=== PATIENT | female | born 1985 | race Caucasian/White ===

== ENCOUNTER → 2017-09-26 11:06 | Outpatient (CLI) | payer BC | END | disposition home or self-care (01) | LOC: D.LDO 11:06 | DX: O40.3XX0 Polyhydramnios, third trimester, not applicable or unspecified (principal); Z3A.32 32 weeks gestation of pregnancy ==

== ENCOUNTER → 2017-10-06 08:23 | Outpatient (CLI) | payer BC | END | disposition home or self-care (01) | LOC: D.LDO 08:23 | DX: O40.3XX0 Polyhydramnios, third trimester, not applicable or unspecified (principal); Z3A.33 33 weeks gestation of pregnancy ==

== ENCOUNTER → 2017-10-13 09:03 | Outpatient (CLI) | payer BC | END | disposition home or self-care (01) | LOC: D.LDO 09:03 | DX: O40.3XX0 Polyhydramnios, third trimester, not applicable or unspecified (principal); Z3A.34 34 weeks gestation of pregnancy ==

== ENCOUNTER → 2017-10-20 09:09 | Outpatient (CLI) | payer BC ==
[~2017-10-20 09:09] MED LIST: IBUPROFEN800 MG PO; PERCOCET 5-3251 TAB PO; PRENATAL COMPLE1 TAB PO
[2017-11-06 22:17] VITALS: BMI 48.1
== END | disposition home or self-care (01) ==
LOC: D.LDO 09:09
DX: O40.3XX0 Polyhydramnios, third trimester, not applicable or unspecified (principal); Z3A.35 35 weeks gestation of pregnancy

== ENCOUNTER → 2017-10-27 06:38 | Outpatient (CLI) | payer BC ==
[2017-11-06 22:17] VITALS: BMI 48.1
== END | disposition home or self-care (01) ==
LOC: D.LDO 06:38
DX: O40.3XX0 Polyhydramnios, third trimester, not applicable or unspecified (principal); Z3A.36 36 weeks gestation of pregnancy

== ENCOUNTER → 2017-10-31 10:43 | Outpatient (CLI) | payer BC ==
[2017-11-06 22:17] VITALS: BMI 48.1
== END | disposition home or self-care (01) ==
LOC: D.LDO 10:43
DX: O40.3XX0 Polyhydramnios, third trimester, not applicable or unspecified (principal); Z3A.37 37 weeks gestation of pregnancy

== ENCOUNTER → 2017-11-04 08:36 | Outpatient (CLI) | payer BC ==
[2017-11-06 22:17] VITALS: BMI 48.1
== END | disposition home or self-care (01) ==
LOC: D.LDO 08:36
DX: O40.3XX0 Polyhydramnios, third trimester, not applicable or unspecified (principal); Z3A.37 37 weeks gestation of pregnancy

== ENCOUNTER 2017-11-06 14:29 | Inpatient (IN) | payer BC ==
[~2017-11-06] VITALS: Ht 162.6 cm; Wt 127.0 kg
--- NOTE | ~2017-11-06 | OP ---
PATIENT NAME: RODRIGUEZ GATICA MEDICAL RECORD: [id number] LOCATION:[id number] ADMISSION DATE:11/06/17 SURGEON: LEONID ANN MD DATE OF OPERATION: 11/07/2017 PREDELIVERY DIAGNOSES: 1. at 38 weeks' gestation. 2. Polyhydramnios. 3. Arrest of descent. 4. Nonreassuring surveillance. POSTOPERATIVE DIAGNOSES: 1. at 38 weeks' gestation. 2. Polyhydramnios. 3. Arrest of descent. 4. Nonreassuring surveillance. PROCEDURE: Primary low transverse section. SURGEON: Leonid Ann MD ANESTHESIOLOGIST: Dr. Olea ANESTHETIC: Continuous lumbar epidural. FINDINGS: Viable male , vertex presentation, Apgars are 8 and 9, weight 8 pounds 8 ounces. A large amount of fluid at the time of entry into the amniotic cavity. SPECIMEN REMOVED: Placenta. SPECIMEN DISPOSITION: Discarded. EBL: 800-900 cc. FLUIDS: 800 cc of lactated Ringer's. URINE OUTPUT: 50 of clear urine. COMPLICATION: Expanding hematoma and left uterine artery laceration. DRAINS: Pimentel to gravity. INDICATIONS: The patient is a 32-year-old G1, para 0 with polyhydramnios. The patient has been induced with using Cytotec and Pitocin, progressed into active labor and began expulsive efforts earlier this evening. The patient had development of large caput, repetitive deep variable decelerations. Upon cessation of expulsive efforts and discontinuation of the Pitocin, the baseline, which became elevated after expulsive efforts stopped came down to a normal range. The patient was taken to the operating room for a section for failure to progress and nonreassuring surveillance. DESCRIPTION OF PROCEDURE: After informed consent was assured, the patient was taken to the operating room where anesthetic was assessed and found to be adequate. OPERATIVE REPORT [id number] RODRIGUEZ GATICA A low transverse incision was made on the abdomen, carried down to the underlying layer of the fascia. The fascia was opened in the midline and extended laterally. Rectus bellies were dissected free superiorly and inferiorly and then . The peritoneum was entered and a low transverse hysterotomy was performed after development of a bladder flap and insertion of a bladder blade. Infant was delivered onto the abdomen. The cord was doubly clamped and cut and infant was passed to the awaiting attendant. Cord blood sample was obtained. Placenta was delivered and the uterus exteriorized, cleared of all clot and debris. Uterine atony was encountered and Methergine as well as 1 ampule of Hemabate was given. The Hemabate was given directly into the uterus. The hysterotomy is closed. After the initial running locked stitch inspection reveals expanding hematoma on the left side and bleeding from the left uterine vascular bundle. An O'[place]ster stitch was applied here. Two [id number] stitches were also applied to obtain hemostasis. The cul-de-sac was irrigated and uterus returned to the abdomen. The uterus is inspected and again bleeding was noted from the left margin of the incision. The uterus again was exteriorized and a stitch was placed above the uterine hysterotomy at this time obtaining hemostasis. The uterus again was returned to the abdomen and the pelvis was irrigated with water. The operative field was visualized under the water irrigant for several moments without evidence of bleeding vessels. The irrigant was now removed and visual inspection again revealed hemostasis. The peritoneum was reapproximated and the fascia closed with looped PDS in a running fashion. The subcutaneous tissue was inspected and bleeding vessels cauterized. The skin was reapproximated with dimitrios and sterile dressing was applied. The sponge, lap and needle counts were correct times 2 and the patient went to the recovery area in stable condition. TRANSINT:[id number] Voice Confirmation ID: [id number] DOCUMENT ID: [id number] LEONID ANN MD at 0903 CC: [id number] DICTATION DATE: 11/07/172004 [employer] COUNSELOR: 11/07/172054 ADM IN [facility] [address] [id number]
[2017-11-06 21:34] LABS: HEMATOCRIT 33.4 % (36.0-48.0); HEMOGLOBIN 11.1 g/dL (12-16); MCH 26.7 pg (26.0-34.0); MCHC 33.2 g/dL (31.0-37.0); MCV 80.5 fL (80.0-100.0); MEAN PLATELET VOLUME 11.2 fL (7.4-10.4); RBC 4.15 10x6/uL (4.00-5.40); RDW 13.4 % (11.5-14.5); WBC 9.2 10x3/uL (4.8-10.8)
[2017-11-06 22:10] LABS: UDS - AMPHET NEGATIVE QUAL (NEGATIVE); UDS - BARB NEGATIVE QUAL (NEGATIVE); UDS - BENZO NEGATIVE QUAL (NEGATIVE); UDS - COCAINE NEGATIVE QUAL (NEGATIVE); UDS - OPIATE NEGATIVE QUAL (NEGATIVE); UDS - PCP NEGATIVE QUAL (NEGATIVE); UDS - THC NEGATIVE QUAL (NEGATIVE)
[2017-11-06 22:17] VITALS: BP 132/81; Ht 162.6 cm; Wt 127.0 kg
[2017-11-06] MEDS ORDERED: PRENATAL COMPLE1 TAB PO (23:25)
[2017-11-07] VITALS (7 sets, daily range): BP systolic 108–138; BP diastolic 57–80
[2017-11-08] VITALS (7 sets, daily range): BP systolic 113–146; BP diastolic 54–76
[2017-11-08 04:57] LABS: HEMATOCRIT 31.1 % (36.0-48.0); HEMOGLOBIN 10.3 g/dL (12-16); MCHC 33.1 g/dL (31.0-37.0); MCV 81.6 fL (80.0-100.0); MEAN PLATELET VOLUME 11.5 fL (7.4-10.4); RBC 3.81 10x6/uL (4.00-5.40); RDW 13.9 % (11.5-14.5)
[2017-11-08 05:10] LABS: WBC 19.5 10x3/uL (4.8-10.8)
[2017-11-08 05:15] LABS: RAPID PLASMA REAGIN Non Reactive (Non Reactive)
[2017-11-09 03:19] VITALS: BP 128/66
[2017-11-09 08:14] VITALS: BP 126/62
[2017-11-09 11:35] VITALS: BP 133/80
[2017-11-09] MEDS ORDERED: PERCOCET 5-3251 TAB PO (14:01)
[2017-11-09] MEDS ORDERED: IBUPROFEN800 MG PO (14:02)
== END 2017-11-09 14:30 | disposition home or self-care (01) | DRG 765 ==
LOC: D.LDO 14:29 → D.LD 20:16
PROVIDERS: Obstetrics & Gynecology
PROC: 04QY0ZZ Repair Lower Artery, Open Approach (ICD-10-PCS; 2017-11-07)
PROC: 3E0P7VZ Introduction of Hormone into Female Reproductive, Via Natural or Artificial Opening (ICD-10-PCS; 2017-11-07)
PROC: 3E033VJ Introduction of Other Hormone into Peripheral Vein, Percutaneous Approach (ICD-10-PCS; 2017-11-07)
PROC: 10D00Z1 Extraction of Products of Conception, Low, Open Approach (ICD-10-PCS; principal; 2017-11-07 19:05)
DX: O76 Abnormality in fetal heart rate and rhythm complicating labor and delivery (principal); O40.3XX0 Polyhydramnios, third trimester, not applicable or unspecified; O62.1 Secondary uterine inertia; O71.81 Laceration of uterus, not elsewhere classified; Z37.0 Single live birth; Z3A.38 38 weeks gestation of pregnancy